=== PATIENT | male | born 1970 | race Caucasian/White ===

== ENCOUNTER → 2019-01-01 07:15 | Outpatient (CLI) | payer OTHER, SELFPAY ==
[2019-01-01 08:48] LABS: Prostate Specific Antigen Scrn 0.775 ng/mL (0.1-4.0)
== END ==
PROVIDERS: PCP Family Medicine; Visit Provider Family Medicine
DX: Z12.5 Encounter for screening for malignant neoplasm of prostate (principal)
CPT/HCPCS: 36415; G0103

== ENCOUNTER → 2020-04-28 07:47 | Outpatient (CLI) | payer OTHER, SELFPAY ==
--- NOTE | 2020-04-28 07:50 | DI.RAD.S_ITS ---
PROCEDURE: XR HAND RT MIN 3V INDICATIONS: right thumb/radial aspect pain and bruise TECHNIQUE: 3 views of the hand(s) acquired. COMPARISON: [facility], , HAND 3V RIGHT, 11/05/2007, 20:28. FINDINGS: Bones: No fractures or dislocations. Carpal bones are normally aligned. No suspicious bony lesions. Scattered degenerative subchondral sclerosis and spurring. Marginal lucencies projecting at the 3rd MCP joint, probably unchanged. Soft tissues: No suspicious soft tissue calcifications. IMPRESSION: No fracture. If the patient's symptoms do not improve recommend followup radiographs in 10 days to assess for healing sclerosis/occult injury. Dictated by: Toño Heredia M.D. on 04/28/2020 at 9:48 Approved by: Toño Heredia M.D. on 04/28/2020 at 9:50
== END ==
PROVIDERS: PCP Family Medicine; Referring Provider Nurse Practitioner Family; Visit Provider Nurse Practitioner Family
DX: S60.221A Contusion of right hand, initial encounter (principal)
CPT/HCPCS: 73130

== ENCOUNTER → 2020-06-11 09:45 | Outpatient (CLI) | payer OTHER, SELFPAY ==
[2020-06-11 11:09] LABS: COVID19 -Nasal RAPID Negative (Negative)
== END ==
PROVIDERS: PCP Family Medicine; Visit Provider Surgery
DX: Z20.822 Contact with and (suspected) exposure to COVID-19 (principal)
CPT/HCPCS: 87635; C9803

== ENCOUNTER 2020-06-14 06:27 | Day surgery (SDC) | payer OTHER, SELFPAY ==
[2020-06-14] VITALS (7 sets, daily range): BP systolic 90–111; BP diastolic 58–71; PULSE 41–51; RESP 10–15; TEMP 36.2–36.6; O2SAT 96–99; BMI 26.9
[2020-06-14] MEDS: LACTATED RINGERS 1,000 ML 200 ML IV ×2 (08:00→09:11)
--- NOTE | 2020-06-14 09:06 | PM.HP.1 ---
History of Present Illness History of Present Illness Date Patient Seen: 06/14/20 Time Patient Seen: 09:07 Chief complaint: SCREENING COLONOSCOPY Narrative: The patient presents for colorectal sreening. They have never had any previous examination for such. No personal or family history of colon cancer. On further history denies any recent gastrointestinal symptoms. No nausea, vomiting, abdominal pain, loss of appetite, unexplained weight loss, change in bowel habits, diarrhea, constipation, melena, hematochezia, or bright red blood per rectum. Patient History Medical History Multiple nevi Family & Social History Social History: household members spouse,children Tobacco & Substance use: Smoking Status Never smoker alcohol intake current alcohol intake frequency a few times a month Substance Use Type does not use Meds Home Medications and Allergies Home Medications Medication Instructions Recorded Confirmed Type No Known Home Medications 05/17/20 06/14/20 History Allergies Allergy/AdvReac Type Severity Reaction Status Date / Time No Known Drug Allergies Allergy Verified 06/14/20 07:09 Review of Systems Review of Systems ROS: Yes All systems reviewed with the patient and are negative except as otherwise documented Exam Vital Signs (past 8 hours): - 06/14/20 07:09 Temperature 97.7 F Pulse Rate 50 L Respiratory Rate 14 Blood Pressure 111/60 Pulse Oximetry 98 Oxygen Delivery Method Room Air Narrative Exam Narrative: General-no acute distress, adult male HEENT-moist mucous membranes, no scleral icterus Neck-supple, no lymphadenopathy Chest- non labored respirations, Cardiac-regular rate no peripheral edema Abdomen-soft, nontender nondistended Extremities-warm, well perfused Neurological-alert and oriented, no focal deficits Assessment & Plan Assessment & Plan narrative: The patient requires colorectal screening and colonoscopy is recommended. Technical details were discussed. Risks, benefits, alternatives explained. Risks including but not limited to myocardial infarction, aspiration, bleeding, pain, missed lesion, incomplete examination, need for further radiographic studies, colonic perforation, and need for major abdominal surgery were discussed. All questions were answered to their satisfaction, and they are in agreement with this plan.
[2020-06-14] MEDS: fentaNYL 250 MCG/5 ML INJ IV (09:23)
[2020-06-14] MEDS: MIDAZOLAM 5 MG/5 ML VIAL IV (09:24)
--- NOTE | 2020-06-14 09:39 | PM.OP.ENDO ---
Operative Date/Time/Diagnoses Date of procedure: 06/14/20 Time of procedure: 09:39 Pre-op diagnosis: Screening colonoscopy Post-op diagnosis: same Procedure & Clinicians Study performed: Colonoscopy Same procedure as scheduled: Yes Indications: 49-year-old male no prior colonoscopy presents for routine screening. Surgeon: Uriah Reyes Procedure Notes Procedure in detail: Medications: Conscious sedation using 6mg IV midazolam and 150mcg IV of fentanyl The history and physical was performed/updated and the patient is ASA class is 1. The procedure was discussed in detail with the patient. Potential risks complications including infection, bleeding, missed diagnosis, perforation, need for surgery, and were explained. Their questions were answered and informed consent was obtained. Patient was brought to the procedure room and placed standard monitoring equipment. The patient's vital signs were monitored continuously throughout the entire procedure. Prior to starting time-out was performed. The patient was placed in the left lateral recumbent position. Procedural sedation was administered. Examination began with a thorough inspection of the perianal area there was no evidence of fissures, fistulae, external hemorrhoids or cutaneous malignancy. The colonoscopy scope was then placed into the anal canal and was advanced to the cecum, which was identified by the ileocecal valve, the appendiceal orifice and the confluence of the taenia. The scope was then slowly withdrawn examining colon thoroughly in all directions, irrigating it of any residual stool. No masses or polyps Sigmoid diverticulosis The patient tolerated the procedure well. They will be discharged once criteria are met. The prep was of good/excellent quality. The withdrawl time was 7 minutes. The sedation time was 20 minutes. Complications: none Impression: Normal colonoscopy Post-procedure Recommendations: Colonscopy in 10 years Disposition: same day surgery
--- NOTE | 2020-06-14 09:46 | SUR.PHASEI ---
Pt received to PACU after colonoscopy. Report received from KRISSY Gardner.
== END 2020-06-14 10:56 | disposition home or self-care (01) ==
PROVIDERS: PCP Family Medicine; Referring Provider Family Medicine; Visit Provider Surgery
PROC: 0DJD8ZZ Inspection of Lower Intestinal Tract, Via Natural or Artificial Opening Endoscopic (ICD-10-PCS; CPT 45378; principal; 2020-06-14 07:45)
DX: Z12.11 Encounter for screening for malignant neoplasm of colon (principal); K57.30 Diverticulosis of large intestine without perforation or abscess without bleeding
CPT/HCPCS: 45378; 99152; J2250; J3010

== ENCOUNTER → 2020-06-24 08:37 | Outpatient (CLI) | payer OTHER, SELFPAY ==
[2020-06-24] MEDS: COVID-19 VACC #1, MRNA(MOD) 100 MCG/0.5 ML VIAL IM (08:44)
== END ==
PROVIDERS: PCP Family Medicine; Visit Provider Internal Medicine
DX: Z23 Encounter for immunization (principal)
CPT/HCPCS: 0011A; 91301

== ENCOUNTER → 2020-07-22 07:58 | Outpatient (CLI) | payer OTHER, SELFPAY ==
[2020-07-22] MEDS: COVID-19 VACC #2, MRNA(MOD) 100 MCG/0.5 ML VIAL IM (08:05)
== END ==
PROVIDERS: PCP Family Medicine; Visit Provider Internal Medicine
DX: Z23 Encounter for immunization (principal)
CPT/HCPCS: 0012A; 91301

== ENCOUNTER → 2020-11-24 15:21 | Outpatient (CLI) | payer OTHER, SELFPAY ==
[2020-11-24 18:18] LABS: Alanine Aminotransferase 24 IU/L (<50); Albumin 4.3 g/dL (3.5-5.0); Albumin Globulin Ratio 1.3 (1.0-2.8); Alkaline Phosphatase 56 U/L (38-126); Aspartate Aminotransferase 27 IU/L (17-59); Bilirubin Unconjugated 0.8 mg/dL (0.0-1.1); Blood Urea Nitrogen 17 mg/dL (9-20); Calcium 9.4 mg/dL (8.4-10.2); Carbon Dioxide 30 mmol/L (22-32); Chloride 102 mmol/L (98-107); Cholesterol 157 mg/dL (140-199); Estimated Glomerular Filt Rate > 60.0 mL/min (>60); Globulin 3.2 g/dL (1.7-4.1); Glucose 109 mg/dL (70-100); HDL Cholesterol 31 mg/dL (40-60); HEMOLYSIS < 15 (0-50); LDL Cholesterol Calculated 90 mg/dL (<100); Potassium 3.9 mmol/L (3.4-5.1); Sodium 138 mmol/L (137-145); Total Protein 7.5 g/dL (6.3-8.2); Triglycerides 182 mg/dL (35-150)
[2020-11-24 18:29] LABS: Add Manual Diff / Slide Review NO; Basophils Absolute Auto 0 /uL (0-100); Basophils Percent Auto 0.6 % (0-2); Eosinophils Absolute Auto 100 /uL (0-450); Eosinophils Percent Auto 2.3 % (2-4); Hematocrit 44.1 % (41-53); Hemoglobin 15.5 g/dL (13.5-17.5); Lymphocytes Absolute Auto 1500 /uL (1100-4500); Lymphocytes Percent Auto 29.3 % (25-40); Mean Corpuscular HGB Conc 35.3 % (30-36); Mean Corpuscular Hemoglobin 32.6 PG (26-34); Mean Corpuscular Volume 92.5 fL (80-100); Monocytes Absolute Auto 400 /uL (0-900); Monocytes Percent Auto 8.8 % (3-14); Neutrophils Absolute Auto 2900 /uL (1500-7000); Platelet Count 141 X10^3/uL (150-400); Red Blood Cell Count 4.77 X10^6/uL (4.5-5.9); Red Cell Distribution Width 12.5 % (11.6-14.8)
== END ==
PROVIDERS: PCP Family Medicine; Visit Provider Family Medicine
DX: L56.2 Photocontact dermatitis [berloque dermatitis] (principal); L28.1 Prurigo nodularis; B35.1 Tinea unguium; B35.3 Tinea pedis; L73.8 Other specified follicular disorders; D22.5 Melanocytic nevi of trunk; L82.1 Other seborrheic keratosis; L81.4 Other melanin hyperpigmentation; D18.01 Hemangioma of skin and subcutaneous tissue; Z08 Encounter for follow-up examination after completed treatment for malignant neoplasm; Z85.820 Personal history of malignant melanoma of skin; Z85.828 Personal history of other malignant neoplasm of skin; Z87.2 Personal history of diseases of the skin and subcutaneous tissue; Z13.220 Encounter for screening for lipoid disorders
CPT/HCPCS: 80053; 80061; 80076; 85025

== ENCOUNTER 2022-04-07 07:21 | Emergency (ER) | payer OTHER, SELFPAY ==
[2022-04-07 07:31] VITALS: BP 130/85; PULSE 54; RESP 18; TEMP 36.6; O2SAT 100; BMI 26.9
--- NOTE | 2022-04-07 07:37 | DI.RAD.S_ITS ---
PROCEDURE: XR SHOULDER LT MIN 2V INDICATIONS: fall and pain post fall TECHNIQUE: 3 views of the shoulder were acquired. COMPARISON: None. FINDINGS: Bones: No fractures or dislocations. No suspicious bony lesions. Visualized ribs appear intact. Soft tissues: No suspicious soft tissue calcifications. IMPRESSION: No acute shoulder fracture or dislocation. No gross soft tissue abnormalities. Dictated by: Hawk Quiroz M.D. on 04/07/2022 at 8:13 Approved by: Hawk Quiroz M.D. on 04/07/2022 at 8:13
--- NOTE | 2022-04-07 08:35 | ED_ITS ---
HPI - Fall General Chief Complaint: Fall Stated Complaint: ski injuries LT clavicle/ LT knee Time Seen by Provider: 04/07/22 07:46 Source: patient Mode of arrival: Ambulatory Limitations: no limitations History of Present Illness HPI Narrative: Patient is a 51-year-old male who yesterday was skiing when he fell and landed on his left shoulder. He was able to get up and move afterwards but has had some discomfort on the top of his shoulder. He has hurt his AC joint in the past. Also earlier this week he injured his left knee over the inside aspect of it. He has been able to ambulate. He is here just to make sure that there is nothing broken or more that needs to be done. Related Data Previous Rx's Medication Instructions Recorded escitalopram oxalate 10 mg tablet 10 mg PO DAILY #90 tabs 03/15/22 Allergies Allergy/AdvReac Type Severity Reaction Status Date / Time No Known Drug Allergies Allergy Verified 12/21/21 12:57 Review of Systems Constitutional Constitutional: Reports system reviewed and no additional complaints, except as documented Musculoskeletal Musculoskeletal: Reports system reviewed and no additional complaints, except as documented Integumentary/Breasts Skin/Breast: Reports system reviewed and no additional complaints, except as documented Neurologic Neurologic: Reports system reviewed and no additional complaints, except as documented Patient History Medical History Melanoma Multiple nevi Screening cholesterol level Seborrheic dermatitis (04/26/15) Social History marital status: household members: spouse and children Smoking Status: Never smoker alcohol intake: current substance use type: does not use Smoking Status: Never smoker alcohol intake frequency: a few times a month Substance Use Type: does not use Exam Initial Vital Signs Initial Vital Signs: Vital Signs Temperature 98 F 04/07/22 07:31 Pulse Rate 54 L 04/07/22 07:31 Respiratory Rate 18 04/07/22 07:31 Blood Pressure 130/85 04/07/22 07:31 Pulse Oximetry 100 04/07/22 07:31 Oxygen Delivery Method 04/07/22 07:31 Skin General: no rashes or lesions noted Neuro Sensory Exam: no sensory deficits noted Extrem Other: Patient is tender over the insertion point of the left MCL. The MCL ACL PCL and LCL are all intact with functional testing. He has no tenderness over the hamstrings. No tenderness over the quadriceps and patellar tendon. He is also tender over the left AC joint. No tenderness over the biceps tendon. His left elbow left wrist are unremarkable. Course Orders Ordered: ED Orders 04/07/22 07:37 XR shoulder LT min 2V Stat Vital Signs Vital signs: Vital Signs - 8 hr 04/07/22 07:31 Temperature 98 F Pulse Rate 54 L Respiratory Rate 18 Blood Pressure 130/85 Pulse Oximetry 100 Oxygen Delivery Method Room Air MDM - Fall Differential Diagnosis Differential diagnosis: Likely other (Fractures, dislocations, sprains, strains and others) Condition is:: Well Controlled Imaging Data Extremity x-ray #1: Radiologist's Impression: [address] [address] XRay Report Signed Patient: Conrado Negron MR#: [id number] : 1970 Acct:[id number] Age/Sex: 51 / M Date of Service: 04/07/22 Loc: ED Accession Number: [id number] ?? Procedure: XR shoulder LT min 2V Ordering Provider: Kyle Vazquez D.O. PROCEDURE:? XR SHOULDER LT MIN 2V ? INDICATIONS:? fall and pain post fall ? TECHNIQUE:? 3 views of the shoulder were acquired.? ? COMPARISON:? None. ? FINDINGS:? ? Bones:? No fractures or dislocations.? No suspicious bony lesions.? Visualized ribs appear intact.? ? Soft tissues:? No suspicious soft tissue calcifications.? ? IMPRESSION:? No acute shoulder fracture or dislocation.? No gross soft tissue abnormalities.? ? Dictated by: Hawk Quiroz M.D. on 04/07/2022 at 8:13 ? ? Approved by: Hawk Quiroz M.D. on 04/07/2022 at 8:13?? [facility] Narrative Medical decision making narrative: The x-ray of the left shoulder shows no fractures nor dislocations. I do suspect either a grade 1 agreed to AC separation. I did discuss this with the patient. He also has tenderness over the left MCL insertion point. There is no instability or weakness. I suspect an MCL strain. I discussed this with him as well. Will discharge home. He will take anti-inflammatories. He does have a knee brace at home. He was given return precautions. He expressed understanding and agreement. Discharge Plan Departure Patient Disposition: Home Clinical Impression: MCL sprain of left knee, Separation of left acromioclavicular joint Instructions: DI for Knee Sprain, AC Joint Separation Activity Restrictions/Additional Instructions: Do recommend the use the knee brace like we discussed. You can take Tylenol and ibuprofen for discomfort. Return to the emergency department for any new symptoms. Prescriptions: No Action escitalopram oxalate 10 mg tablet 10 mg PO DAILY Qty: 90 3RF Rx Instructions: Take 1 tablet once daily Referrals: Shawn Sandoval MD [Primary Care Provider] - Stand Alone Forms: Patient Portal/API
== END 2022-04-07 08:57 | disposition home or self-care (01) ==
PROVIDERS: Emergency Provider Emergency Medicine; PCP Family Medicine
DX: S83.412A Sprain of medial collateral ligament of left knee, initial encounter (principal); S43.102A Unspecified dislocation of left acromioclavicular joint, initial encounter; W00.0XXA Fall on same level due to ice and snow, initial encounter; Y93.23 Activity, snow (alpine) (downhill) skiing, snowboarding, sledding, tobogganing and snow tubing
CPT/HCPCS: 73030; 99283

== ENCOUNTER → 2022-09-11 07:21 | Outpatient (CLI) | payer OTHER, SELFPAY ==
[2022-09-11 08:44] LABS: Cholesterol 176 mg/dL (140-199); HDL Cholesterol 39 mg/dL (40-60); LDL Cholesterol Calculated 112 mg/dL (<100); Triglycerides 123 mg/dL (35-150)
[2022-09-11 09:14] LABS: Prostate Specific Antigen Scrn 0.707 ng/mL (0.1-4.0)
[2022-09-12 07:09] LABS: x Labcorp Estim. Avg Glu (eAG) 108 mg/dL (.); x Labcorp Hemoglobin A1c 5.4 % (4.8-5.6)
== END ==
PROVIDERS: Physician Assistant; PCP Family Medicine; Referring Provider Family Medicine; Visit Provider Family Medicine
DX: R73.01 Impaired fasting glucose (principal); E78.2 Mixed hyperlipidemia; Z13.220 Encounter for screening for lipoid disorders; Z12.5 Encounter for screening for malignant neoplasm of prostate
CPT/HCPCS: 36415; 80061; 83036; G0103

== ENCOUNTER → 2022-09-14 12:35 | Outpatient (CLI) | payer OTHER, SELFPAY ==
--- NOTE | 2022-09-14 12:37 | DI.RAD.S_ITS ---
PROCEDURE: XR KNEE RT 3V INDICATIONS: rt knee pain clicking and popping TECHNIQUE: 3 views of the knee were acquired. COMPARISON: [facility], , KNEE 3V LEFT, 07/13/2010, 16:52. FINDINGS: Bones: No fractures or dislocations. No suspicious bony lesions. Mild medial lateral compartment joint space narrowing. Soft tissues: Possible small joint effusion. No suspicious soft tissue calcifications. IMPRESSION: 1. No acute osseous abnormality. 2. Degenerative changes of the knee are present. 3. Possible nonspecific knee effusion. 4. If symptoms persist, follow-up radiographs and/or CT or MRI may be helpful for further evaluation. Dictated by: Zhao Gomez M.D. on 09/14/2022 at 16:12 Approved by: Zhao Gomez M.D. on 09/14/2022 at 16:39
== END ==
PROVIDERS: PCP Family Medicine; Referring Provider Family Medicine; Visit Provider Family Medicine
DX: M25.561 Pain in right knee (principal)
CPT/HCPCS: 73562

== ENCOUNTER 2023-05-04 11:04 | Emergency (ER) | payer OTHER, SELFPAY ==
[2023-05-04 11:16] VITALS: BP 136/76; PULSE 50; RESP 16; TEMP 35.9; O2SAT 99; BMI 27.6
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
[2023-05-04 12:30] VITALS: BP 115/75; PULSE 50; RESP 20; TEMP 36.6; O2SAT 98
== END 2023-05-04 12:39 | disposition home or self-care (01) ==
PROVIDERS: Emergency Provider Physician Assistant Medical; PCP Family Medicine
DX: S22.31XA Fracture of one rib, right side, initial encounter for closed fracture (principal); V18.0XXA Pedal cycle driver injured in noncollision transport accident in nontraffic accident, initial encounter
CPT/HCPCS: 71101; 99281; 99282